=== PATIENT | male | born 1990 | race Caucasian/White ===

== ENCOUNTER → 2017-07-29 | Outpatient (CLI) | payer OTHER ==
[2017-07-29 15:39] LABS: BLOOD UREA NITROGEN 16 mg/dL (7-18); HEMATOCRIT 46.2 % (39.2-51.8); HEMOGLOBIN 15.7 g/dL (13.7-18.0); WHITE BLOOD COUNT 5.1 x10^3/uL (3.4-10)
[2017-07-29 15:51] LABS: ASPARTATE AMINO TRANSFERASE 9 U/L (15-37)
== END | disposition home or self-care (01) ==
LOC: CFH 13:17
PROVIDERS: ATTEND Nurse Practitioner Primary Care
DX: F41.9 Anxiety disorder, unspecified (principal); R53.83 Other fatigue; J30.2 Other seasonal allergic rhinitis; R79.89 Other specified abnormal findings of blood chemistry
CPT/HCPCS: 36415; 80053; 80061; 82306; 84443; 85025

== ENCOUNTER 2018-10-04 04:42 | Emergency (ER) | payer OTHER ==
[~2018-10-04] VITALS: Ht 180.3 cm; Wt 85.0 kg
--- NOTE | 2018-10-04 05:21 | NUR ---
ASSESSMENT MADE. ERP AT BEDSIDE. C/O INTERMITTENT LEFT SIDED CHEST PAIN X 2 WEEKS, DESCRIBED DULL ACHE.
[2018-10-04] MEDS ORDERED: ASPI-496 PO (05:24)
[2018-10-04] MEDS ORDERED: MAALOX/HYOSCYAMINE/LIDOCAINE 45 ML BTL ONE (05:50)
--- NOTE | 2018-10-04 05:55 | NUR ---
pt medicated for possible acid reflux, no complaints, vss
[2018-10-04] MEDS ORDERED: MAALOX/HYOSCYAMINE/LIDOCAINE 45 ML BTL PO ONE (06:00)
[2018-10-04 06:28] VITALS: BP 125/81
[2018-10-04 06:29] LABS: BASOPHILS # (AUTO) 0.04 x10^3/uL (0-0.1); BASOPHILS % (AUTO) 0 % (0-1); EOSINOPHILS # (AUTO) 0.11 x10^3/uL (0-0.4); EOSINOPHILS % (AUTO) 1 % (1-7); LYMPHOCYTES # (AUTO) 2.29 x10^3/uL (1-3.4); LYMPHOCYTES % (AUTO) 25 % (22-44); MD NO; MEAN CORPUSCULAR HEMOGLOBIN 29.8 pg (27.5-34.5); MEAN CORPUSCULAR HGB CONC 33.9 g/dL (33.2-36.2); MEAN CORPUSCULAR VOLUME 87.9 fL (81-97); MEAN PLATELET VOLUME 8.1 fL (7.4-10.4); MONOCYTES # (AUTO) 1.01 x10^3/uL (0.2-0.8); MONOCYTES % (AUTO) 11 % (2-9); NEUTROPHILS # (AUTO) 5.71 x10^3/uL (1.8-6.8); NEUTROPHILS % (AUTO) 62 % (42-75); PLATELET COUNT 277 x10^3/uL (130-400); RED BLOOD COUNT 5.29 x10^6/uL (4.38-5.82); RED CELL DISTRIBUTION WIDTH 12.1 % (9.4-14.8)
--- NOTE | 2018-10-04 06:29 | NUR ---
pt resting in bed, vss, awaiting lab results
[2018-10-04 06:31] LABS: ALBUMIN 3.9 g/dL (3.4-5.0); ANION GAP 8 mmol/L (5-15); CALCIUM 9.4 mg/dL (8.5-10.1); CHLORIDE 106 mmol/L (98-107)
[2018-10-04 06:37] LABS: CREATININE 0.85 mg/dL (0.7-1.3); TROPONIN I < 0.015 ng/mL (0.000-0.045)
== END 2018-10-04 07:02 | disposition home or self-care (01) ==
LOC: ED 07:01
DX: K21.9 Gastro-esophageal reflux disease without esophagitis (principal); R07.2 Precordial pain; J45.909 Unspecified asthma, uncomplicated
CPT/HCPCS: 36415; 71045; 80048; 82040; 84484; 85025; 93005; 99284

== ENCOUNTER 2019-08-01 20:51 | Emergency (ER) | payer OTHER ==
[~2019-08-01] VITALS: Ht 154.9 cm; Wt 86.5 kg
[~2019-08-01 20:51] MED LIST: ASPI-496 PO
[2019-08-01 21:11] VITALS: BP 136/95
[2019-08-01 22:29] LABS: BASOPHILS # (AUTO) 0.04 x10^3/uL (0-0.1); BASOPHILS % (AUTO) 0 % (0-1); EOSINOPHILS # (AUTO) 0.02 x10^3/uL (0-0.4); EOSINOPHILS % (AUTO) 0 % (1-7); LYMPHOCYTES # (AUTO) 2.05 x10^3/uL (1-3.4); LYMPHOCYTES % (AUTO) 24 % (22-44); MD NO; MEAN CORPUSCULAR HEMOGLOBIN 30.7 pg (27.5-34.5); MEAN CORPUSCULAR HGB CONC 33.8 g/dL (33.2-36.2); MEAN CORPUSCULAR VOLUME 90.9 fL (81-97); MEAN PLATELET VOLUME 8.5 fL (7.4-10.4); MONOCYTES # (AUTO) 0.55 x10^3/uL (0.2-0.8); MONOCYTES % (AUTO) 7 % (2-9); NEUTROPHILS # (AUTO) 5.81 x10^3/uL (1.8-6.8); NEUTROPHILS % (AUTO) 69 % (42-75); PLATELET COUNT 250 x10^3/uL (130-400); RED BLOOD COUNT 5.41 x10^6/uL (4.38-5.82); RED CELL DISTRIBUTION WIDTH 12.2 % (9.4-14.8)
[2019-08-01 22:41] LABS: ALANINE AMINOTRANSFERASE 26 U/L (12-78); ALBUMIN 4.5 g/dL (3.4-5.0); ANION GAP 7 mmol/L (5-15); CALCIUM 9.3 mg/dL (8.5-10.1); CHLORIDE 104 mmol/L (98-107); CREATININE 1.02 mg/dL (0.7-1.3)
[2019-08-01 22:43] LABS: ALKALINE PHOSPHATASE 55 U/L (45-117); BILIRUBIN,TOTAL 1.7 mg/dL (0.2-1.0); TOTAL PROTEIN 8.4 g/dL (6.4-8.2)
[2019-08-01] MEDS ORDERED: LORazepam 1MG TABLET PO ONE (23:30)
[2019-08-01] MEDS ORDERED: LORazepam 1MG TABLET ONE (23:37)
== END 2019-08-01 23:49 | disposition home or self-care (01) ==
LOC: ED 22:58
DX: F41.1 Generalized anxiety disorder (principal); R11.0 Nausea; F12.10 Cannabis abuse, uncomplicated; J45.909 Unspecified asthma, uncomplicated; Z72.89 Other problems related to lifestyle; Z90.89 Acquired absence of other organs
CPT/HCPCS: 36415; 80053; 85025; 99283; 99284

== ENCOUNTER 2019-09-05 22:21 | Emergency (ER) | payer OTHER ==
[~2019-09-05] VITALS: Ht 180.3 cm; Wt 86.4 kg
--- NOTE | 2019-09-05 22:45 | NUR ---
PT C/O NUMBNESS TO ALL EXTREMITIES AT DIFFERENT TIME STARTED OVER 1 MONTH AGO. LEFT PUPIL 3MM, RIGHT PUPIL 2MM. HX ANXIETY. CONNECTED TO MONITORING. CALL LIGHT IN REACH. AWAITING ORDERS AT THIS TIME.
[2019-09-05 23:07] LABS: BASOPHILS # (AUTO) 0.03 x10^3/uL (0-0.1); BASOPHILS % (AUTO) 0 % (0-1); EOSINOPHILS # (AUTO) 0.03 x10^3/uL (0-0.4); EOSINOPHILS % (AUTO) 0 % (1-7); LYMPHOCYTES # (AUTO) 2.17 x10^3/uL (1-3.4); LYMPHOCYTES % (AUTO) 25 % (22-44); MD NO; MEAN CORPUSCULAR HEMOGLOBIN 29.9 pg (27.5-34.5); MEAN CORPUSCULAR HGB CONC 33.7 g/dL (33.2-36.2); MEAN CORPUSCULAR VOLUME 88.7 fL (81-97); MEAN PLATELET VOLUME 7.9 fL (7.4-10.4); MONOCYTES # (AUTO) 0.79 x10^3/uL (0.2-0.8); MONOCYTES % (AUTO) 9 % (2-9); NEUTROPHILS # (AUTO) 5.84 x10^3/uL (1.8-6.8); NEUTROPHILS % (AUTO) 66 % (42-75); PLATELET COUNT 268 x10^3/uL (130-400); RED BLOOD COUNT 5.12 x10^6/uL (4.38-5.82); RED CELL DISTRIBUTION WIDTH 12.3 % (9.4-14.8)
[2019-09-05 23:24] LABS: ALANINE AMINOTRANSFERASE 23 U/L (12-78); ALBUMIN 4.2 g/dL (3.4-5.0); ANION GAP 8 mmol/L (5-15); CALCIUM 9.1 mg/dL (8.5-10.1); CHLORIDE 105 mmol/L (98-107); CREATININE 1.07 mg/dL (0.7-1.3)
[2019-09-05 23:26] LABS: ALKALINE PHOSPHATASE 55 U/L (45-117); TOTAL PROTEIN 7.9 g/dL (6.4-8.2)
--- NOTE | 2019-09-06 00:27 | NUR ---
REPORT FROM [facility] ASSUMING CARE OF PT
[2019-09-06] MEDS ORDERED: SODIUM CHLORIDE FLUSH 10ML SYR IVF ONE (00:30)
[2019-09-06] MEDS ORDERED: GADOTERATE 10 MMOL/20 ML SYR ONE (01:36)
--- NOTE | 2019-09-06 02:04 | NUR ---
PT BACK FROM MRI RESTING ON JONEL CROFT AT BEDSIDE
--- NOTE | 2019-09-06 02:49 | NUR ---
PT RESTING ON [employer] CALL LIGHT IN REACH. TWIN
--- NOTE | 2019-09-06 02:52 | NUR ---
STAT READ CALLED TO FOLLOW UP ON MRI READ, STS WILL BE DONE IN 10-15MINS. UPDATED
[2019-09-06 03:50] VITALS: BP 128/85
== END 2019-09-06 03:52 | disposition home or self-care (01) ==
LOC: ED 22:43
DX: R20.2 Paresthesia of skin (principal); K21.9 Gastro-esophageal reflux disease without esophagitis; J45.909 Unspecified asthma, uncomplicated
CPT/HCPCS: 36415; 70553; 80053; 85025; 99284; A9575

== ENCOUNTER 2019-10-21 11:45 | Day surgery (SDC) | payer OTHER ==
[~2019-10-21] VITALS: Ht 180.3 cm; Wt 81.8 kg
[2019-10-21] MEDS ORDERED: SODIUM CHLORIDE 0.9% 1,000 ML IV SCH (12:15)
[2019-10-21] MEDS ORDERED: NONE PER PT (12:17)
[2019-10-21 12:39] VITALS: BP 127/81
[2019-10-21 16:15] LABS: GLUCOSE, CSF 58 mg/dL (40-80); TOTAL PROTEIN,CSF 36 mg/dL (15-45)
== END 2019-10-21 16:20 | disposition home or self-care (01) ==
LOC: OUT 11:45
PROVIDERS: ATTEND Nurse Practitioner Family
DX: R20.9 Unspecified disturbances of skin sensation (principal); R20.2 Paresthesia of skin
CPT/HCPCS: 36415; 62328; 82040; 82042; 82784; 82945; 83873; 84157; 86645; 86695; 86696; 86762; 86777; 86778; 87070; 87205; 89051; J7030